=== PATIENT | male | born 1960 | race Caucasian/White ===

== ENCOUNTER 2019-05-01 17:21 | Observation (INO) | payer BC ==
[~2019-05-01 17:21] MED LIST: Dexamethasone 20 MG/5 ML VIAL ONE; Ketorolac Tromethamine 30 MG/ML VIAL ONE; Lidocaine 1% PF 5 ML VIAL ONE; Ondansetron PF 4 MG/2 ML Vial ONE; PROPOFOL 200 MG/20 ML VIAL ONE
[2019-05-01] MEDS ORDERED: Lidocaine 1% PF 5 ML VIAL ONE (17:23)
[2019-05-01] MEDS ORDERED: Adacel (T-DAP) 0.5 ML SYRINGE ONE (17:43)
--- NOTE | 2019-05-01 17:49 | RAD ---
Right hand 3 views HISTORY: Right hand injury. FINDINGS: Comminuted laceration-type fracture and injury of the tuft of the distal phalanx little fin lamont with 0.3 cm distraction of the major fragments. No intra-articular extension. Degenerative changes most pronounced at the first carpometacarpal joint. IMPRESSION: Comminuted fractured tuft of the right little finger. Osteoarthritic changes.
[2019-05-01] MEDS ORDERED: HYDROcodone/Acetaminophen 10/325 mg Tablet ONE (17:53)
[2019-05-01] MEDS ORDERED: Sodium Chloride 0.9% 10 ML ONE (19:46)
[2019-05-01] MEDS ORDERED: Bacitracin Zinc Ointment 30 gm TUBE ONE (19:46)
[2019-05-01] MEDS ORDERED: Bupivacaine PF 0.5% 30 ML VIAL ONE (19:46)
[2019-05-01] MEDS ORDERED: Thrombin 5000 UNITS/5 ML VIAL ONE (19:46)
[2019-05-01] MEDS ORDERED: Midazolam HCl 2 mg/2 ml Vial ONE (20:22)
[2019-05-01] MEDS ORDERED: Clindamycin/D5W 900 mg/50 ml Premix Bag ONE (20:22)
[2019-05-01] MEDS ORDERED: Fentanyl 100 MCG/2 ML VIAL ONE (20:35)
[2019-05-01] MEDS ORDERED: Morphine 4 MG/ML VIAL SLOW IVP PRN (20:49)
[2019-05-01] MEDS ORDERED: traMADol HCl 50 MG TAB PO PRN (20:49)
[2019-05-01] MEDS ORDERED: Promethazine HCl 25 MG/ML VIAL IM PRN (20:49)
[2019-05-01] MEDS ORDERED: Ondansetron PF 4 MG/2 ML Vial IV PRN (20:49)
[2019-05-01] MEDS ORDERED: Ketorolac Tromethamine 30 MG/ML VIAL IVP PRN (20:51)
[2019-05-01] MEDS ORDERED: Communication Order-Pharmacy FS SCH (21:00)
[2019-05-01] MEDS ORDERED: TETANUS AND DIPHTHERIA TOX/PF 0.5 ML DISP.SYRIN IM SCH (21:00)
[2019-05-01 22:54] LABS: Anion Gap 15 mmol/L (10-20); BUN (Urea Nitrogen) 25 mg/dL (8.4-25.7); Calc. Creatinine Clearance 0 mL/min (70-130); Calcium 8.8 mg/dL (7.8-10.44); Carbon Dioxide 25 mmol/L (22-29); Chloride 104 mmol/L (98-107); Estimated GFR-MDRD 85; Glucose 86 mg/dL (70-105); Potassium 4.2 mmol/L (3.5-5.1); Sodium 140 mmol/L (136-145)
[2019-05-01] MEDS: Aspirin 81 mg Enteric Coated Tablet PO SCH (23:22)
[2019-05-01] MEDS: Vancomycin HCl 1 GM in Premix Bag 1 BAG IVPB SCH (23:30)
[2019-05-01] MEDS ORDERED: Sodium Chloride 0.9% 1,000 ML IV SCH (23:30)
[2019-05-01] MEDS ORDERED: Atorvastatin Calcium 20 MG TAB PO SCH (23:30)
[2019-05-01] MEDS ORDERED: Aspirin 81 mg Enteric Coated Tablet PO SCH (23:30)
[2019-05-01] MEDS ORDERED: Lisinopril 20 MG TAB PO SCH (23:30)
[2019-05-01] MEDS ORDERED: Ketorolac Tromethamine 30 MG/ML VIAL IVP SCH (23:59)
[2019-05-02 00:16] VITALS: BMI 28.5
[2019-05-02 06:14] LABS: #Lymphocytes 0.7 thou/uL (1.20-3.40); #Monocytes 0.1 thou/uL (0.11-0.59); #Neutrophils 5.9 thou/uL (1.40-6.50); %Eosinophils 0.2 % (0.0-10.0); %Lymphocytes 10.5 % (21.0-51.0); %Monocytes 0.9 % (0.0-10.0); %Neutrophils 88.4 % (42.0-75.0); Hemoglobin 11.5 g/dL (14.0-18.0); Mean Corpuscular HGB CONC 35.1 g/dL (32.0-36.0); Mean Corpuscular Volume 91.4 fL (78.0-98.0); Mean Platelet Volume 9.6 fL (7.4-10.4); Platelet Count 105 thou/uL (130-400); Platelet Morphology Comment Appears Decreased; RBC Distribution Width 11.1 % (11.5-14.5); White Blood Cell (WBC) Count 6.7 thou/uL (4.8-10.8)
--- NOTE | 2019-05-02 07:46 | RAD ---
EXAM: 3 views of the right small finger HISTORY: ORIF of distal phalanx fracture of small finger COMPARISON: None FINDINGS: Limited intraoperative fluoroscopic views show the patient is status post percutaneous K wi re fixation of the fracture of the distal phalanx of the small finger. No soft tissue swelling is seen. No degenerative changes are present. IMPRESSION: Percutaneous pinning of small finger fracture without evidence of complication.
[2019-05-02] MEDS: Aspirin 81 mg Enteric Coated Tablet PO SCH (08:06)
[2019-05-02] MEDS: Vancomycin HCl 1 GM in Premix Bag 1 BAG IVPB SCH (11:44)
[2019-05-02 15:07] VITALS: BP 107/64; TEMP 98
[2019-05-02] MEDS ORDERED: Atorvastatin Calcium 20 MG TAB PO SCH (21:00)
[2019-05-02] MEDS ORDERED: Lisinopril 20 MG TAB PO SCH (21:00)
--- NOTE | 2019-05-09 08:11 | OP ---
DATE OF PROCEDURE: 05/01/2019 PREOPERATIVE DIAGNOSES: 1. Grade 2 open fracture distal phalanx, right small finger. 2. A 2 cm wound, right small finger. 3. Wound with nail bed involving right small finger. POSTOPERATIVE DIAGNOSES: 1. Grade 2 open fracture distal phalanx, right small finger. 2. A 2 cm wound, right small finger. 3. Wound with nail bed involving right small finger. PROCEDURES PERFORMED: 1. Debridement of material associated with open fracture. 2. Debridement of wound, which was separate from the actual opening of the open fracture. 3. Open reduction and internal fixation of distal phalanx, right small finger. 4. Nail bed repair, right small finger. 5. C-arm supervision, right small finger. 6. A 2 cm wound closure, right small finger. 7. C-arm supervision for procedures listed above. 8. Application of short-arm splint. TOURNIQUET TIME: 30 minutes. ESTIMATED BLOOD LOSS: Less than 10 mL. FINDINGS: Four part comminuted fracture treated with crossing K-wires to achieve some compression. 0.35 in diameter. DESCRIPTION OF PROCEDURE: After successful general LMA technique, the limb was prepped and draped. The patient had been counseled for the right small finger procedures that were performed, the site, side, history and physical and radiographs all matched the consented procedures. We then inflated the tourniquet after exsanguination of the limb to 250 mmHg pressure. We removed the nail remnant in order to evaluate the nail plate. We saw a jagged uneven nail bed injury. Through the nail bed laceration, we debrided the material associated with open fracture of the tuft/distal phalanx fracture. A separate 2 cm wound which was longitudinal and oblique leaving at least one complete bundle intact and we found the same side bundle intact, was debrided with separate wound. Both debridement involved excisional technique, we used a combination of [place] blade, tenotomy scissors, small rongeur, and irrigated a total of 3 L normal saline and Pulsavac pressure, it was down to including the bone and there was no gross infection or contamination. We then had to finish the 2 debridements, wound separate incision from the open fracture, and performed open reduction and internal fixation with 2 crossing K-wires under C-arm supervision. Used 0.35 wire to achieve compression and the leave room in this patient's small finger shaft. Then, we repaired the nail bed after repair and a 2 cm wound with 5-0 nylon interrupted simple pattern, using the nail bed with a 6-0 chromic. It had excellent apposition of the nail bed and radiograph showed nearly anatomic position of fracture. We then cut the wires with the small wire cut below the skin, obtained hemostasis. We released the tourniquet, and then placed a bulky dressing with an ulnar gutter splint out to the level of the just distal to the nail bed of the small finger in [place] position of function. The digit was pink, and the patient left the operating room without evidence of anesthetic operative complication. Job ID: [id number]
== END 2019-05-02 15:28 | disposition home or self-care (01) ==
LOC: SCSER 17:21 → SDC/OP 19:14 → T4-B 22:16
PROVIDERS: ADMIT Orthopaedic Surgery Hand Surgery; ATTEND Orthopaedic Surgery Hand Surgery
PROC: 0PST04Z Reposition Right Finger Phalanx with Internal Fixation Device, Open Approach (ICD-10-PCS; principal; 2019-05-01)
PROC: 0HQQXZZ Repair Finger Nail, External Approach (ICD-10-PCS; 2019-05-01)
DX: S67.196A Crushing injury of right little finger, initial encounter (principal); S62.636B Displaced fracture of distal phalanx of right little finger, initial encounter for open fracture; I10 Essential (primary) hypertension; E78.5 Hyperlipidemia, unspecified; E78.00 Pure hypercholesterolemia, unspecified; Z79.899 Other long term (current) drug therapy; Z88.5 Allergy status to narcotic agent; Z98.890 Other specified postprocedural states; W30.89XA Contact with other specified agricultural machinery, initial encounter
CPT/HCPCS: 36415; 76000; 80048; 85025; 90471; 90715; 96361; 96365; 96366; G0378; J1100; J1885; J2001; J2250; J2405; J2704; J3010; J3370; J3490; S0020